=== PATIENT | male | born 1975 | race Caucasian/White ===

== ENCOUNTER 2022-02-01 18:49 | Emergency (ER) | payer SELFPAY ==
[~2022-02-01] VITALS: Ht 188 cm; Wt 81.6 kg
[2022-02-01 19:07] VITALS: BP 149/86
[2022-02-01] MEDS ORDERED: RX-CLINDAMYCIN 150 MG (CLEOCIN) CAP PPK#4 PO STA (19:25)
[2022-02-01] MEDS ORDERED: TETANUS,DIPTH,PERTUSS P/F (BOOSTRIX) 0.5 ML VIAL IM ONE (19:30)
[2022-02-01] MEDS ORDERED: COVID-19 VACC,MRNA(MODERNA)/PF 50 MCG/0.25 ML BOOSTER IM ONE (19:30)
[2022-02-01] MEDS ORDERED: CLIN-144 PO (19:35)
--- NOTE | 2022-02-01 19:35 | ED Integumentary General ---
General Chief Complaint: Skin/Wound Problems Stated Complaint: SPLINTER IN FINGER Nursing Triage Note: PT AMB TO [facility] 2 W C/O LEFT POINTER FINGER SPLINTER ON TUESDAY, PT REPORTS HE PULLED SPLINTER OUT BUT IS STILL CONCERNED ABOUT AREA D/T REDNESS AND CLEAR DRAINAGE. PT [id number], DENIES PAIN, REPORTS HX OF MRSA. 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 He remove the splinter but since then has had some swelling of the site with increasing pain. Timing/Duration: other Severity: mild Associated Symptoms: denies symptoms Allergies and Home Medications Allergies Coded Allergies: codeine (Verified Allergy, Unknown, 02/01/22) Patient Home Medication List Home Medication List Reviewed: Yes Review of Systems Review of Systems Constitutional: see HPI EENTM: see HPI Respiratory: no symptoms reported Cardiovascular: no symptoms reported Genitourinary: no symptoms reported Musculoskeletal: no symptoms reported Skin: see HPI Psychiatric/Neurological: No Symptoms Reported Endocrine: No Symptoms Reported Past [id number] Hx Patient Social History Tobacco Use?: Yes Tobacco type used: Cigarettes Smoking Status: Current Everyday Smoker Use of E-Cig and/or Vaping dev: No Substance use?: Yes Substance type: Marijuana Substance frequency: Daily Alcohol Use?: No Immunizations Up To Date Influenza Vaccine Up-to-Date: No; Not Current First/Initial COVID19 Vaccinat: 05/25/2021 Second COVID19 Vaccination Jered: 06/22/2021 Third COVID19 Vaccination Date: NONE COVID19 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 Physical Exam Vital Signs Vital Signs - First Documented 02/01/22 19:07 Temp 36.4 Pulse 107 Resp 20 B/P (MAP) 149/86 (107) Pulse Ox 96 O2 Delivery Room Air Capillary Refill : Less Than 3 Seconds General Appearance: WD/WN, no apparent distress HEENT: PERRL/EOMI, normal ENT inspection Respiratory: no respiratory distress, no accessory muscle use Extremities: normal range of motion Neurologic/Psychiatric: alert, normal mood/affect, oriented x 3 Skin: normal color, warm/dry Skin Problem Character: abscess, other (There is some erythema to the dorsal aspect of the left pointer finger proximal phalanx that extends to the distal aspect of the second and third metacarpals. On bedside ultrasound there is a very small fluid collection. We did some local anesthesia totaling about 1.2 mL of lidocaine 1% without epinephrine then a small incision with an 11 blade scalpel and a small amount of purulent and bloody material was expressed. Culture collected and sent to lab.) Progress/Results/Core Measures Results/Orders My Orders Orders - AIME MANCILLA APRN Wound Culture (02/01/22 19:25) Rx-Clindamycin Capsule (Rx-Cleocin Capsu (02/01/22 19:25) Dipht,Pertuss(Acell),Tet Adult (Boostrix (02/01/22 19:30) Covid-19 Vacc,Mrna(Moderna)/Pf (Moderna (02/01/22 19:30) Vital Signs/I&O 02/01/22 19:07 Temp 36.4 Pulse 107 Resp 20 B/P (MAP) 149/86 (107) Pulse Ox 96 O2 Delivery Room Air Blood Pressure Mean: 107 Departure Communication (Admissions) He states that he has a history of MRSA and clindamycin has historically worked better for him than Bactrim. He would also like to get the Covid booster vaccine while he is here. Impression Primary Impression: Abscess Disposition: 01 HOME, SELF-CARE Condition: Stable Departure-Patient Inst. Decision time for Depature: 19:33 Referrals: NO,LOCAL PHYSICIAN (PCP/Family) Primary Care Physician Patient Instructions: Abscess Incision and Drainage (DC) Add. Discharge Instructions: 1. Tylenol and ibuprofen for any body aches or fevers. Expect to feel fairly achy and poor for the next 2 to 3 days after these vaccinations. You can take the dressing off to shower and then just keep it covered with another dressing while at work. Return to ER for any concerns. Follow-up with your doctor next week. Antibiotic as directed. All discharge instructions reviewed with patient and/or family. Voiced understanding. Scripts Clindamycin HCl (Clindamycin HCl) 300 Mg Capsule 300 MG PO TID, #21 CAP Prov: AIME MANCILLA APRN 02/01/22 AIME MANCILLA APRN Feb 01, 2022 19:35
[2022-02-03] MEDS ORDERED: SULF1TAB38 PO (14:43)
== END 2022-02-01 19:46 | disposition home or self-care (01) ==
LOC: ER 18:56
DX: L02.512 Cutaneous abscess of left hand (principal); F17.210 Nicotine dependence, cigarettes, uncomplicated; Z23 Encounter for immunization
CPT/HCPCS: 10060; 87070; 87077; 87186; 87205; 90471; 90715